=== PATIENT | female | born 1970 | race Caucasian/White ===

== ENCOUNTER 2017-05-09 15:59 | Emergency (ER) | payer MEDICAID ==
[2017-05-09 16:12] VITALS: BP 151/93
--- NOTE | 2017-05-09 16:52 | ER Document Report ---
ED ENT - General Chief Complaint: Ear Pain Stated Complaint: EAR PAIN Time Seen by Provider: 05/09/17 16:36 Mode of Arrival: Ambulatory Information source: Patient TRAVEL OUTSIDE OF THE [place] IN LAST 30 DAYS: No - HPI Patient complains to provider of: Ear problem Onset: Other - 3 days Onset/Duration: Gradual Quality of pain: Achy Severity: Mild Pain Level: 2 Location of pain: Ears Associated symptoms: Dental caries, Ear pain Notes: Patient is a 47-year-old female presenting to the emergency room today complaining of right ear pain that has been present for 3 days, she denies any fevers, no nasal congestion, no sore throat, she does have a mild headache, and complains of known chronic dental caries with dental pain - Related Data Allergies/Adverse Reactions: tape Adverse Reaction (Uncoded 05/09/17 16:07) Past Medical History - Social History Smoking Status: Never Smoker Chew tobacco use (# tins/day): No Frequency of alcohol use: None Drug Abuse: None Family History: Reviewed & Not Pertinent Patient has suicidal ideation: No Patient has homicidal ideation: No Neurological Medical History: Reports: Hx Migraine Renal/ Medical History: Reports: Hx Kidney Stones. Denies: Hx Peritoneal Dialysis Past Surgical History: Reports: Hx Abdominal Surgery - gastric bypass, Hx Section - x3 Review of Systems - Review of Systems Constitutional: No symptoms reported EENT: See HPI Cardiovascular: No symptoms reported Respiratory: No symptoms reported Gastrointestinal: No symptoms reported Genitourinary: No symptoms reported Female Genitourinary: No symptoms reported Musculoskeletal: No symptoms reported Skin: No symptoms reported Hematologic/Lymphatic: No symptoms reported Neurological/Psychological: No symptoms reported -: Yes All other systems reviewed and negative Physical Exam - Vital signs Vitals: Temp Pulse Resp BP Pulse Ox 98.5 F 75 16 151/93 H 100 05/09/17 16:10 05/09/17 16:10 05/09/17 16:10 05/09/17 16:10 05/09/17 16:10 - Notes Notes: - General General appearance: Appears well, Alert In distress: None - HEENT Head: Normocephalic, Atraumatic Eyes: Normal Conjunctiva: Normal Extraocular movements intact: Yes Eyelashes: Normal Pupils: PERRL Ears: Bilateral tympanic membranes are non-erythematous, mild bulging in the right, external auditory canal normal Teeth: Multiple dental caries, silver fillings noted - Respiratory Respiratory status: No respiratory distress - Cardiovascular Rhythm: Regular - Abdominal Inspection: Normal - Back Back: Normal - Extremities General upper extremity: Normal inspection General lower extremity: Normal inspection - Neurological Neuro grossly intact: Yes Orientation: AAOx4 Joe Coma Scale Eye Opening: Spontaneous Joe Coma Scale Verbal: Oriented Joe Coma Scale Motor: Obeys Commands [place] Coma Scale Total: 15 - Psychological Associated symptoms: Normal affect, Normal mood - Skin Skin Temperature: Warm Skin Moisture: Dry Skin Color: Normal Course - Re-evaluation Re-evalutation: 05/09/17 16:49 Physical exam findings unremarkable except for mild bulging of the right tympanic membrane without erythema or other abnormality, symptoms likely secondary to poor dentition, patient was advised to follow-up with a dentist, will be given a prescription for antihistamine medication as well as instructions for follow-up, advised to return if symptoms worsen, patient acknowledges understanding and agreement with this plan - Vital Signs Vital signs: Temp Pulse Resp BP Pulse Ox 98.5 F 75 16 151/93 H 100 05/09/17 16:10 05/09/17 16:10 05/09/17 16:10 05/09/17 16:10 05/09/17 16:10 Discharge - Discharge Clinical Impression: Ear pain, right Condition: Stable Disposition: HOME, SELF-CARE Instructions: Toothache ([facility]) Additional Instructions: Follow up with your primary care provider and dentist in one to 2 days. Return to the emergency room immediately if symptoms worsen or any additional concerns. Prescriptions: Fexofenadine/Pseudoephedrine [Erica-D 12 Hour Tablet] 1 each PO BID #[id number] Referrals: [facility],NO [Primary Care Provider] - Follow up as needed
== END 2017-05-09 16:59 | disposition home or self-care (01) ==
LOC: ER 15:59
DX: H92.01 Otalgia, right ear (principal); R51 Headache; K02.9 Dental caries, unspecified; K08.89 Other specified disorders of teeth and supporting structures; Z98.84 Bariatric surgery status
CPT/HCPCS: 99282